=== PATIENT | female | born 1980 | race African-American/Black ===

== ENCOUNTER 2019-08-11 19:17 | Emergency (ER) | payer SELFPAY ==
[~2019-08-11] VITALS: Ht 170.2 cm; Wt 73.0 kg
[2019-08-11] MEDS ORDERED: SODIUM CHLORIDE 0.9% 1,000 ML IV ONE (19:58)
[2019-08-11] MEDS ORDERED: FAMOTIDINE 20MG/2ML VIAL IV ONE (20:00)
[2019-08-11] MEDS ORDERED: METHYLPREDNISOLONE SOD SUCC 125 MG/2 ML VIAL IV ONE (20:00)
[2019-08-11 20:43] LABS: BASOPHILS % 0.4 % (0.0-2.0); EOSINOPHILS % 0.1 % (0.0-5.0); HEMOGLOBIN. 12.4 g/dL (12.0-16.0); LYMPHOCYTES % 9.4 % (20.0-50.0); MEAN CORPUSCULAR HEMOGLOBIN 31.1 pg (28.0-32.0); MEAN CORPUSCULAR VOLUME 95.8 fL (81.0-99.0); MEAN PLATELET VOLUME 7.4 fl (7.4-10.4); MONOCYTES % 4.9 % (2.0-8.0); NEUTROPHILS % 85.2 % (40.0-76.0); PLATELET 266 x1000/uL (130-400); RED BLOOD CELL COUNT 3.97 mill/uL (4.2-5.4); RED CELL DISTRIBUTION WIDTH 13.5 % (11.6-14.6)
[2019-08-11 20:45] LABS: CHLORIDE 111 mEq/L (98-107)
[2019-08-11 20:50] LABS: PARTIAL THROMBOPLASTIN TIME 26.1 sec (23.4-31.0); PROTHROMBIN TIME 10.6 sec (9.6-11.0)
[2019-08-11 21:17] LABS: HCG SCREEN NEGATIVE
[2019-08-12 00:14] VITALS: BP 120/61
== END 2019-08-12 01:04 | disposition home or self-care (01) ==
LOC: ER 19:17
DX: T78.40XA Allergy, unspecified, initial encounter (principal); Z86.711 Personal history of pulmonary embolism; Z95.1 Presence of aortocoronary bypass graft; Z91.010 Allergy to peanuts; X58.XXXA Exposure to other specified factors, initial encounter
CPT/HCPCS: 36415; 80053; 84703; 85025; 85610; 85730; 93005; 96374; 96375; 99284; J2930; J3490; J7030; Z7610

== ENCOUNTER 2022-07-26 04:04 | Emergency (ER) | payer MEDICAID, OTHER ==
[~2022-07-26] VITALS: Ht 162.6 cm; Wt 54.0 kg
[2022-07-26 04:06] VITALS: BP 116/80
== END 2022-07-26 06:16 | disposition home or self-care (01) ==
LOC: ER 04:12
DX: U07.1 COVID-19 (principal); J44.9 Chronic obstructive pulmonary disease, unspecified; Z86.711 Personal history of pulmonary embolism; Z95.1 Presence of aortocoronary bypass graft; Z91.010 Allergy to peanuts; Z28.310 Unvaccinated for COVID-19
CPT/HCPCS: 99283